=== PATIENT | male | born 1965 | race Caucasian/White ===

== ENCOUNTER 2021-09-02 11:31 | Emergency (ER) | payer SELFPAY ==
[2021-09-02 11:54] VITALS: BP 155/92; PULSE 112; RESP 16; TEMP 36.7; O2SAT 96; BMI 35.9
[2021-09-02 13:19] VITALS: BP 161/87; PULSE 112; O2SAT 95
[2021-09-02] MEDS: lisinopriL 20 MG TABLET PO (13:30)
[2021-09-02] MEDS: hydroCHLOROthiazide 25 MG TABLET PO (13:30)
--- NOTE | 2021-09-02 15:13 | ED_ITS ---
HPI - General Adult <RANDY Porras - Last Filed: 09/02/21 15:18> General Chief complaint: Hypertension Stated complaint: blood pressure high need meds Time Seen by Provider: 09/02/21 13:02 Source: patient Mode of arrival: Ambulatory History of Present Illness HPI narrative: Male presents to the emergency department stating that he ran out of his lisinopril/hydrochlorothiazide five days ago and has been having a headache with elevated blood pressures since. Patient states [place] [facility] [place], he has been on this medication for many years, he was planning on being back home but has been caring for his grandchildren for an extended period of time. He states his sister is going to send him his medication from home which he forgot, and he needs 1 week's worth as a refill until his medications arrive. Patient denies any chest pain, shortness of breath, dizziness, weakness, diaphoresis or other symptom. He states that his head has been hurting today but he attributes that to his elevated blood pressure today above baseline of 120s over 60s 70s. Patient also states that maybe he is slightly dehydrated and could tolerate drinking some more water. Patient denies any nausea vomiting, states he is otherwise healthy without any symptoms. Related Data Home Medications Medication Instructions Recorded Confirmed Metformin Hydrochloride 850 mg PO BIDCC #0 12/11/11 (GLUCOPHAGE) [OTC ACID REFLUX MEDS] PRN #0 12/11/11 lisinopril 20 mg tablet 20 mg PO QDAY #0 12/11/11 Previous Rx's Medication Instructions Recorded lisinopril 20 1 tab PO DAILY 10 Days #10 tab 09/02/21 mg-hydrochlorothiazide 25 mg tablet Allergies Allergy/AdvReac Type Severity Reaction Status Date / Time No Known Drug Allergies Allergy Verified 09/02/21 11:58 Review of Systems <RANDY Porras - Last Filed: 09/02/21 15:18> Review of Systems Narrative: General: denies fever, chills Head/Neck: Endorses mild headache, neck pain Eyes: denies visual changes, eye pain Cardio: denies chest pain, palpitations Respiratory: denies shortness of breath, cough GI: denies abdominal pain, nausea, vomiting, or diarrhea : denies dysuria, hematuria MSK: denies joint pain, muscle weakness Skin: denies rash, itching Neuro: denies numbness, tingling Patient History <RANDY Porras - Last Filed: 09/02/21 15:18> Social History Smoking Status: Never smoker Smoking Status: Never smoker Substance Use Type: does not use Exam <RANDY Porras - Last Filed: 09/02/21 15:18> Narrative Exam Narrative: Independently reviewed vitals signs and nursing notes. General: Awake, alert, nontoxic, no cardiorespiratory distress Head/Neck: Atraumatic, neck full range of motion Eyes: EOMI, conjunctiva normal Nose: nares patent, no rhinorrhea Mouth/Throat: moist mucus membranes, posterior pharynx normal, no oral lesions Cardio: Regular rate and rhythm, no peripheral edema, without murmur, S1-S2, without tachycardia, patient's heart rate was 85 and regular per my auscultation, no JVD Respiratory: respirations unlabored without wheezing, stridor, or rales. No retractions. GI: Abdomen soft, nontender to palpation MSK: Moves all extremities, neurovascularly intact Skin: Normal capillary refill, no rash Neuro: Normal speech and cognition, normal gait Initial Vital Signs Initial Vital Signs: Vital Signs Temperature 98.0 F 09/02/21 11:54 Pulse Rate 112 H 09/02/21 11:54 Respiratory Rate 16 09/02/21 11:54 Blood Pressure 155/92 H 09/02/21 11:54 Pulse Oximetry 96 09/02/21 11:54 <Yajaira Hawk DO - Last Filed: 09/02/21 18:00> Initial Vital Signs Initial Vital Signs: Vital Signs Temperature 98.0 F 09/02/21 11:54 Pulse Rate 112 H 09/02/21 11:54 Respiratory Rate 16 09/02/21 11:54 Blood Pressure 155/92 H 09/02/21 11:54 Pulse Oximetry 96 09/02/21 11:54 Course <RANDY Porras - Last Filed: 09/02/21 15:18> Orders Ordered: Discontinued Medications Hydrochlorothiazide (Hydrochlorothiazide 25 Mg Tablet) 25 mg PO DAILY GABRIELLA Last Admin: 09/02/21 13:30 Dose: 25 mg Documented by: PRITI Lisinopril (Lisinopril 20 Mg Tablet) 20 mg PO NOW ONE Stop: 09/02/21 13:11 Last Admin: 09/02/21 13:30 Dose: 20 mg Documented by: PRITI Vital Signs Vital signs: Vital Signs - 8 hr 09/02/21 11:54 09/02/21 13:19 Temperature 98.0 F Pulse Rate 112 H 112 H Respiratory Rate 16 Blood Pressure 155/92 H 161/87 H Pulse Oximetry 96 95 <Yajaira Hawk DO - Last Filed: 09/02/21 18:00> Orders Ordered: Discontinued Medications Hydrochlorothiazide (Hydrochlorothiazide 25 Mg Tablet) 25 mg PO DAILY GABRIELLA Last Admin: 09/02/21 13:30 Dose: 25 mg Documented by: PRITI Lisinopril (Lisinopril 20 Mg Tablet) 20 mg PO NOW ONE Stop: 09/02/21 13:11 Last Admin: 09/02/21 13:30 Dose: 20 mg Documented by: PRITI Vital Signs Vital signs: Vital Signs - 8 hr 09/02/21 11:54 09/02/21 13:19 Temperature 98.0 F Pulse Rate 112 H 112 H Respiratory Rate 16 Blood Pressure 155/92 H 161/87 H Pulse Oximetry 96 95 Medical Decision Making <RANDY Porras - Last Filed: 09/02/21 15:18> MDM Narrative Medical decision making narrative: 56-year-old male presents to the emergency department for medication refill for his hydrochlorothiazide/lisinopril 20/25 mg tablet which he ran out of after staying in town longer than planned. Patient states he is in town caring for his grandchildren, his medication is being sent to him from a sister but he has approximately week to wait. He is without any new cardiopulmonary symptom, states has had a headache and might be mildly dehydrated but denies any need for medication. Denies any neck pain, dizziness, visual changes, chest pain, shortness of breath or other symptom. Patient's medication was refilled for 10 days, he states he will return to the emergency department if he develops any cardiopulmonary symptoms or other concerns. Multiple causes of chest pain considered including IN, PE, pneumothorax, pneumonia, aortic dissection, and pleurisy. Patient reports no radiation, no diaphoresis, no provocation with exertion, and no vomiting. Patient is appropriate and amenable to discharge home. Vital signs are stable on repeat examination is unremarkable. Patient has been informed of results. Patient has been given strict return to ER precautions for any new or worsening symptoms. Patient understands to follow up closely with outpatient providers as instructed. Patient understands plan and agrees to discharge home. All questions and concerns answered at this time. Discharge Plan Departure Patient Disposition: Home Clinical Impression: Hypertension Qualifiers: Hypertension type: primary hypertension Qualified Code(s): I10 - Essential (primary) hypertension Instructions: DI for High Blood Pressure Activity Restrictions/Additional Instructions: *You have been diagnosed with hypertension needing a medication refill. 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 Thank you for coming in and keeping your blood pressure within a safe range. Try to stay hydrated, remember to eat a low-sodium food, and enjoy your stay. *What to do: *Please continue to take your regular medications as directed. [ ] New medication prescriptions sent to your pharmacy: [ ] [ ] New medication written as a paper prescription [ ] No new medications given *Please follow up with your primary care provider in 2-3 days, call for an appointment. Let them know you were seen in the Emergency Department and that we ask that you be seen in follow up. We will electronically transmit a record of today's note if your PCP is in our system *If you do not have a primary care provider please contact the [facility] Resource line at [phone]. They will ask some questions about your medical history and help get you set up with a doctor in the community. *Return to Emergency Department if you should have any new, worsening or concerning symptoms, such as [fever greater than 101F, chills, worsening pain, persistent vomiting or other bothersome symptoms] Prescriptions: New lisinopril-hydrochlorothiazide 20-25 mg tablet 1 tab PO DAILY 10 Days Qty: 10 0RF No Action lisinopril 20 MG tablet 20 mg PO QDAY Qty: 0 0RF Metformin Hydrochloride (GLUCOPHAGE) 850 mg PO BIDCC Qty: 0 0RF [OTC ACID REFLUX MEDS] PRN Qty: 0 0RF <Yajaira Hawk DO - Last Filed: 09/02/21 18:00> Cosign ED Attending Cosignature Attestation: I was immediately available in the department for consultation. Documentation has been reviewed.
== END 2021-09-02 13:33 | disposition home or self-care (01) ==
PROVIDERS: Emergency Provider Nurse Practitioner Critical Care Medicine
DX: I10 Essential (primary) hypertension (principal)
CPT/HCPCS: 99283